=== PATIENT | male | born 2000 | race African-American/Black ===

== ENCOUNTER 2020-11-03 20:48 | Emergency (ER) | payer SELFPAY | END 2020-11-03 23:36 | disposition left against medical advice (07) | LOC: ER 20:48 | DX: R10.9 Unspecified abdominal pain (principal); Z53.21 Procedure and treatment not carried out due to patient leaving prior to being seen by health care provider ==

== ENCOUNTER 2020-12-17 06:08 | Day surgery (SDC) | payer BC ==
[~2020-12-17] VITALS: Ht 170.2 cm; Wt 85.0 kg
[~2020-12-17 06:08] MED LIST: HYDROmorphone 2 MG/ML VIAL IVP PRN; IV RINGERS,LACTATED 1000ML 1,000 ML IV SCH; MORPHINE SULFATE 2 MG/ML INJ. IVP PRN; PROCHLORPERAZINE 10 MG/2 ML VIAL. IVP PRN; fentaNYL PF VIAL 100 MCG/2 ML VIAL IVP PRN
[2020-12-17 06:39] VITALS: BP 143/78
[2020-12-17] MEDS ORDERED: IOHEXOL 300 MG/ML 50 ML VIAL. ONE (06:58)
[2020-12-17] MEDS ORDERED: BUPIVACAINE MPF 0.5% 30 ML VIAL. ONE (06:58)
[2020-12-17] MEDS ORDERED: SURGICEL HEMOSTAT 4X8 EACH. ONE (06:58)
[2020-12-17] MEDS ORDERED: LIDOCAINE 2% PF 5 ML VIAL. ONE (07:10)
[2020-12-17] MEDS ORDERED: ONDANSETRON PF 4 MG/2 ML VIAL. ONE (07:10)
[2020-12-17] MEDS ORDERED: PROPOFOL 10 MG/ML (20ML) VIAL. IV ONE ×2 (07:10→08:13)
[2020-12-17] MEDS ORDERED: ROCURONIUM 50 MG/5 ML VIAL. ONE ×2 (07:10→08:13)
[2020-12-17] MEDS ORDERED: DEXAMETHASONE SOD PHOS 4 MG/ML VIAL ONE (07:10)
[2020-12-17] MEDS ORDERED: fentaNYL PF VIAL 100 MCG/2 ML VIAL ONE ×2 (07:11→09:38)
[2020-12-17] MEDS ORDERED: MIDAZOLAM HCL/PF 2 MG/2 ML VIAL. ONE (07:11)
[2020-12-17] MEDS ORDERED: SUCCINYLCHOLINE 200 MG/10 ML VIAL. ONE (07:15)
[2020-12-17] MEDS ORDERED: GLYCOPYRROLATE 1 MG/5 ML VIAL. ONE (07:48)
[2020-12-17] MEDS ORDERED: NEOSTIGMINE METHYLSULFATE 5 MG/5 ML SYRINGE. ONE (07:48)
[2020-12-17] MEDS ORDERED: KETAMINE HCL IN NACL, ISO-OSM 50 MG/5 ML SYRINGE ONE (08:05)
[2020-12-17] MEDS ORDERED: HYDROmorphone 2 MG/ML VIAL ONE (08:05)
[2020-12-17] MEDS ORDERED: KETOROLAC 30 MG/ML VIAL. ONE (08:36)
--- NOTE | 2020-12-17 08:59 | PDOC4 ---
Operative Note Operative Note Operative Note: Preoperative Diagnosis: Biliary dyskinesia Postoperative Diagnosis: Same Procedure: Laparoscopic cholecystectomy with intraoperative cholangiogram Surgeons: Dimitry Shuttle Driver: MIGUEL Grey Lewis Hutfles MS4 Anesthesia: Gen. Estimated Blood Loss: 10 mL Specimen: Gallbladder to pathology Drains: None Complications: None Indications: The patient is a 20-year-old male who is referred with suspected biliary dyskinesia. Surgical treatment was offered by means of a laparoscopic cholecystectomy. The risks of surgery were discussed which include bleeding, infection, bile duct injury, bile leak, pain, the potential for additional surgeries or procedures. The patient understands and would like to proceed. Description: The patient was taken to the operating room and laid supine on the operating table. General anesthesia was performed. The abdomen was prepped with ChloraPrep and draped in a standard surgical fashion. A small infraumbilical incision was made with a scalpel. The Veress needle was then inserted and a pneumoperitoneum was then created. A 5 mm trocar was then inserted and the laparoscope was introduced. In the upper midabdomen a 5 mm trocar was inserted and in the right upper quadrant two 2.3 mm mini lap graspers were inserted. The gallbladder was retracted cephalad. The cystic duct was dissected free from surrounding tissues. One clip was placed on the duct near the gallbladder junction. An opening was made in the duct and a cholangiocatheter placed within and secured with a clip. Using contrast dye and fluoroscopy an intraoperative cholangiogram was performed that appeared unremarkable. The clip and catheter were then withdrawn. Three clips were placed on the cystic duct and it was divided. The cystic artery was then identified, dissected free, doubly clipped and divided as well. The gallbladder was then mobilized away from the liver with cautery. The umbilical 5 millimeter trocar was exchanged for an 11 millimeter trocar. The gallbladder was then placed in an endoscopic bag and extracted at the umbilical trocar site. The fascia there was closed with an 0 Vicryl suture and infiltrated with 0.5% marcaine. All blood and irrigation fluid was suctioned and hemostasis was good. The remaining ports were removed and the pneumoperitoneum was relieved. The skin incisions were closed using 4-0 Monocryl suture. Steri-Strips and dressings were then applied. The patient tolerated the procedure well and was sent to the recovery room in stable condition. At the end of the case all counts were correct. JOHNNY BARROSO MD Dec 17, 2020 08:59
[2020-12-17] MEDS ORDERED: OXYC-325 PO (09:04)
--- NOTE | 2020-12-17 09:05 | DISCH ---
DISCHARGE INSTRUCTIONS Condition on Discharge Condition on Discharge: Stable Activity After Discharge Activity Instructions for Disc: Other, see below (no lifting over 20 lbs X 2 weeks, no driving while taking pain meds) Diet after Discharge Diet after Discharge: Regular Wound Incision Care Wound/Incision Care: Other, see below (may remove bandaids tomorrow and shower) Follow-Up Follow up with: Dr Barroso in office in 2 weeks, call for appointment JOHNNY BARROSO MD Dec 17, 2020 09:05
[2020-12-17] MEDS ORDERED: oxyCODONE/APAP 5/325 1 TAB TABLET PO ONE (09:30)
[2020-12-17] MEDS: fentaNYL PF VIAL 100 MCG/2 ML VIAL IVP PRN ×2 (09:41→09:47)
[2020-12-17] MEDS ORDERED: PROCHLORPERAZINE 10 MG/2 ML VIAL. ONE (09:48)
[2020-12-17 10:10] VITALS: BP 157/81
--- NOTE | 2020-12-17 10:12 | RAD ---
DG INTRAOPERATIVE CHOLANGIOGRAM History: Reason: CHOLANGIOGRAM IN OR W/C-ARM,12.8 S FLUORO, 2 IMAGES / Spl. Instructions: / History: . Pain. Cholecystectomy. Comparison: None. Technique/findings: Fluoroscopy provided intraoperatively during cholangiogram after cholecystectomy. Relative narrowing of the upper common bile duct, potentially artifactual. No intrahepatic biliary ductal dilatation. No rmal caliber mid to distal common bile duct. Contrast noted within the small bowel. See procedure note for further details. Fluoroscopy time: 12.8 Number of fluoroscopic images: 2 Impression: 1. Fluoroscopy provided during intraoperative cholangiogram. No common bile duct obstruction. Electronically signed by: Humza Upton DO (12/17/2020 10:10 AM) [id number]
--- NOTE | 2020-12-18 18:06 | PATHOLOGY ---
[facility] Accession Number: [id number] . 01 Material submitted: . gallbladder - GALLBLADDER AND CONTENTS . 01 Clinical history: . BILIARY DYSKINESIA LAPAROSCOPIC CHOLECYSTECTOMY . 02 Diagnosis: Gallbladder, laparoscopic cholecystectomy: - Chronic cholecystitis, mild. ([facility]:floresita; 12/18/2020) R 12/18/2020 1425 Local . 02 Comment: There are no calculi identified within the gallbladder lumen or specimen container. Sections of the gallbladder show congestion and focal mild chronic inflammation. There is no evidence of malignancy. ([facility]:floresita; 12/18/2020) . 02 Electronically signed: . Richar Land MD, Pathologist NPI- [id number] . 01 Gross description: . Fixative: Formalin Labeled: Gallbladder and contents Specimen received: Intact gallbladder Dimensions: 6.4 x 3.4 x 3.2 cm Serosa: Purple-cheung/green-cheung Lymph node: None identified Mucosa: Velvety, bile-stained Average wall thickness: 0.1 cm Calculi: None present Abnormalities: None identified . A1- Medical Coding Specialist body, fundus, and the cystic duct margin. ([facility]; 12/17/2020) NRI/NRI 12/17/2020 2030 Local . 02 Pathologist provided ICD-10: K81.1 . 02 CPT . 764549 Specimen Comment: A courtesy copy of this report has been sent to [phone] Specimen Comment: [id number] Specimen Comment: Report sent to / DR MENDEZ Specimen Comment: A duplicate report has been generated due to demographic updates. Performed at: [address], [place], [place] [id number] MD David Arroyo MD Phone: [phone] Performed at: 02 [facility] [address] [place], [place] [id number] MD Richar Land MD Phone: [phone]
== END 2020-12-17 10:40 | disposition home or self-care (01) ==
LOC: SURG 06:08
PROVIDERS: ATTEND Surgery
DX: K81.1 Chronic cholecystitis (principal); K82.8 Other specified diseases of gallbladder; Z87.891 Personal history of nicotine dependence; Z79.899 Other long term (current) drug therapy; Z98.890 Other specified postprocedural states
CPT/HCPCS: 47563; 74300; 88304; A4213; A4364; A4930; A6219; C1887; J0330; J0690; J0780; J1100; J1170; J1885; J2250; J2405; J2704; J2710; J3010; J3490; Q9967; A4452; A4657